=== PATIENT | female | born 1980 | race Caucasian/White ===

== ENCOUNTER 2021-09-18 14:03 | Emergency (ER) | payer OTHER, MEDICAID ==
[~2021-09-18] VITALS: Ht 175.3 cm; Wt 145.1 kg
[2021-09-18 14:03] VITALS: BP 143/87
[2021-09-18] MEDS ORDERED: LORazepam 2 MG/ML VIAL ONE ×2 (14:08→15:31)
[2021-09-18] MEDS ORDERED: LORazepam 2 MG/ML VIAL IVP ONE (14:15)
[2021-09-18] MEDS ORDERED: ACETAMINOPHEN EXTRA STRENGTH 500 MG TAB PO ONE (14:25)
--- NOTE | 2021-09-18 14:35 | NUR ---
40 Y/O FEMALE BIBA S/P SEIZURE. PT WAS IN CAR WITH CARGIVERS AND STATED PT HAD FULL TONIC CLONIC SEIZURE X30 SECONDS. DENIES HITTING HEAD. PMH:BRAIN SHUNT, HTN, SZ, BIPOLAR, INTELLECTUAL DISABILITY, VERITIGO ALLERGIES:PCN, IODINE, SHELLFISH, PINEAPPLE,AVOCADO, BEES
[2021-09-18 14:39] LABS: BASOPHILS # (AUTO) 0.1 K/uL (0.00-0.22); BASOPHILS % (AUTO) 0.6 % (0.0-2.0); EOSINOPHILS # (AUTO) 0.1 K/uL (0-0.4); EOSINOPHILS % (AUTO) 1.1 % (0.0-4.0); HEMATOCRIT 39.1 % (36-48); LYMPHOCYTES # (AUTO) 1.8 K/uL (2.5-16.5); LYMPHOCYTES % (AUTO) 20.9 % (20.5-51.1); MEAN CORPUSCULAR HEMOGLOBIN 28 pg (27-31); MEAN CORPUSCULAR HGB CONC 33 g/dL (33-37); MEAN CORPUSCULAR VOLUME 82.3 fL (80-94); MONOCYTES # (AUTO) 0.7 K/uL (0.8-1.0); MONOCYTES % (AUTO) 8.4 % (1.7-9.3); PLATELET COUNT (AUTO) 213 K/uL (140-450); RED BLOOD CELL COUNT(AUTO) 4.74 MIL/uL (4.20-5.40); RED CELL DISTRIBUTION WIDTH 14.3 % (11.6-13.7); WHITE BLOOD COUNT (AUTO) 8.7 K/uL (4.8-10.8)
[2021-09-18 14:51] LABS: ANION GAP 12.1 (8-16); CARBON DIOXIDE 25.6 mmol/L (21-32); CREATININE 0.9 mg/dL (0.6-1.3); POTASSIUM 3.7 mmol/L (3.5-5.1)
--- NOTE | 2021-09-18 16:03 | NUR ---
PT RESTING IN NO APPARENT DISTRESS, BREATHING EVEN AND UNLABORED. VITAL SIGNS STABLE. WILL CONTINUE TO MONITOR.
[2021-09-18] MEDS ORDERED: ACETAMINOPHEN EXTRA STRENGTH 500 MG TAB ONE ×2 (16:12→16:17)
[2021-09-18] MEDS ORDERED: DIVALPROEX 500 MG TABEC PO ONE ×2 (16:45→16:48)
--- NOTE | 2021-09-18 17:01 | NUR ---
PT CONTINUES RESTING IN NO APPARENT DISTRESS. BREATHING EVEN AND UNLABORED. WILL CONTINUE TO MONITOR.
--- NOTE | 2021-09-18 17:45 | NUR ---
SPOKE WITH [facility] [phone] PATIENTS CAREGIVER REGARDING PATIENTS DISCHARGE. PT IS READY TO BE DISCHARGED AWAITING TRANSPORTATION. PT APPEARS IN NO DISTRESS. RESTING, BREATHING EVEN AND UNLABORED.
[2021-09-18 18:29] VITALS: BP 120/67
--- NOTE | 2021-09-18 18:30 | NUR ---
Patient discharged with v/s stable. Written and verbal after care instructions given and explained. Patient verbalized understanding. Ambulatory with steady gait. All questions addressed prior to discharge. Advised to follow up with PMD.
== END 2021-09-18 18:30 | disposition home or self-care (01) ==
LOC: MED 14:03
DX: G40.909 Epilepsy, unspecified, not intractable, without status epilepticus (principal); Z88.0 Allergy status to penicillin; Z88.8 Allergy status to other drugs, medicaments and biological substances
CPT/HCPCS: 36415; 70450; 71045; 80048; 80201; 85025; 93005; 99285; Q0092; J2060